=== PATIENT | male | born 1940 | race Caucasian/White ===

== ENCOUNTER 2019-03-23 11:07 | Day surgery (SDC) | payer MEDICARE, BC ==
[~2019-03-23] VITALS: Ht 180.3 cm; Wt 82.2 kg
[2019-03-23] VITALS (17 sets, daily range): BP systolic 114–157; BP diastolic 43–111
[2019-03-23] MEDS ORDERED: normal saline 1000ml 1,000 ML IV SCH (11:35)
[2019-03-23 12:13] LABS: BASOPHILS % (AUTO) 0.2 % (0-1); EOSINOPHILS # (AUTO) 0.1 X10'3 (0-0.9); HEMATOCRIT 45.2 % (42.0-52.0); HEMOGLOBIN 15.8 g/dl (14.0-17.9); LYMPHOCYTES # (AUTO) 0.8 X10'3 (1.1-4.8); LYMPHOCYTES % (AUTO) 10.9 % (21-51); MEAN CORPUSCULAR HGB CONC 34.8 g/dL (33.0-36.5); MEAN CORPUSCULAR VOLUME 94.8 FL (78-98); MEAN PLATELET VOLUME 7.4 FL (7.4-10.4); MONOCYTES # (AUTO) 0.4 X10'3 (0-0.9); MONOCYTES % (AUTO) 5.5 % (2-12); NEUTROPHILS # (AUTO) 5.9 X10'3 (1.8-7.7); NEUTROPHILS % (AUTO) 82.4 % (42-75); PLATELET COUNT 158 X10'3 (140-440); RED BLOOD COUNT 4.77 X10'6 (4.70-6.10); RED CELL DISTRIBUTION WIDTH 13.8 % (11.5-14.5); WHITE BLOOD COUNT 7.2 X10'3 (4.5-11.0)
[2019-03-23] MEDS ORDERED: LISI10TA4 (12:16)
[2019-03-23] MEDS ORDERED: CANA300T (12:16)
[2019-03-23] MEDS ORDERED: CARV40CP7 (12:16)
[2019-03-23] MEDS ORDERED: ASPI81TA52 PO (12:16)
[2019-03-23] MEDS ORDERED: FLO0.4C (12:16)
[2019-03-23] MEDS ORDERED: SAXA5TAB (12:16)
[2019-03-23] MEDS ORDERED: ROSU5TAB PO (12:16)
[2019-03-23] MEDS ORDERED: METF-438 (12:16)
[2019-03-23] MEDS ORDERED: TRAM50TA2 (12:16)
[2019-03-23 12:22] LABS: ALBUMIN 3.6 G/DL (3.4-5.0); ANION GAP 12 (8-16); BLOOD UREA NITROGEN 20 MG/DL (7-18); BUN/CREATININE RATIO 29.4 (5.4-32.0); CALCIUM 8.7 MG/DL (8.5-10.1); CHLORIDE 109 MMOL/L (99-107); CREATININE 0.68 MG/DL (0.60-1.10); GLUCOSE 99 MG/DL (70-104); POTASSIUM 4.1 MMOL/L (3.5-5.1); SODIUM 144 MMOL/L (135-145); TOTAL CARBON DIOXIDE 23.4 MMOL/L (24-32); eGFR > 90 ML/MIN
[2019-03-23] MEDS ORDERED: midazolam 2 mg/2 ml injection ONE ×2 (12:55→13:21)
[2019-03-23] MEDS ORDERED: fentaNYL/PF 50MCG/1 ML 2ML syringe ONE ×2 (12:55→13:21)
[2019-03-23] MEDS ORDERED: gelatin sponge, absorbable (Gelfoam 12-7MM) sponge TP ONE (13:43)
[2019-03-23] MEDS ORDERED: gelatin sponge, absorbable (Gelfoam 100) sponge TP ONE (15:25)
== END 2019-03-23 15:20 | disposition home or self-care (01) ==
LOC: SSTAY O 11:07
PROVIDERS: ATTEND Radiology Vascular & Interventional Radiology
DX: M89.8X8 Other specified disorders of bone, other site (principal); F41.9 Anxiety disorder, unspecified; I25.10 Atherosclerotic heart disease of native coronary artery without angina pectoris; E11.40 Type 2 diabetes mellitus with diabetic neuropathy, unspecified; E78.5 Hyperlipidemia, unspecified; M19.90 Unspecified osteoarthritis, unspecified site; Z87.442 Personal history of urinary calculi; I10 Essential (primary) hypertension; Z79.84 Long term (current) use of oral hypoglycemic drugs; Z79.899 Other long term (current) drug therapy; Z86.010 Personal history of colon polyps; Z85.46 Personal history of malignant neoplasm of prostate; Z79.01 Long term (current) use of anticoagulants; Z72.89 Other problems related to lifestyle; Z87.891 Personal history of nicotine dependence; Z82.61 Family history of arthritis; Z83.3 Family history of diabetes mellitus; Z80.9 Family history of malignant neoplasm, unspecified
CPT/HCPCS: 20225; 36415; 77012; 80048; 85025; 85610; 99152; 99153; J2250; J3010; J7030; 88305; 88311; 88342

== ENCOUNTER 2019-07-10 15:14 | Emergency (ER) | payer MEDICARE, BC ==
[~2019-07-10] VITALS: Ht 180.3 cm; Wt 82.2 kg
[~2019-07-10 15:14] MED LIST: ASPI81TA52 PO; CANA300T; CARV40CP7; FLO0.4C; LISI10TA4; METF-438; ROSU5TAB PO; SAXA5TAB; TRAM50TA2
[2019-07-10 16:12] VITALS: BP 133/87
[2019-07-10] MEDS ORDERED: BUPIVAcaine/PF 7.5 mg/ml (0.75%) 30ml vial IJ ONE (17:00)
[2019-07-10] MEDS ORDERED: BUPIVAcaine/PF 7.5mg/ml (0.75%) 10ml vial IJ ONE (17:05)
== END 2019-07-10 18:23 | disposition home or self-care (01) ==
LOC: ER 15:15
DX: M25.551 Pain in right hip (principal); G89.29 Other chronic pain; M79.18 Myalgia, other site; Z79.82 Long term (current) use of aspirin; Z79.899 Other long term (current) drug therapy
CPT/HCPCS: 20552; 72170; 99285; J3490

== ENCOUNTER 2019-08-01 13:26 | Emergency (ER) | payer MEDICARE, BC ==
[~2019-08-01] VITALS: Ht 180.3 cm; Wt 81.8 kg
[2019-08-01] MEDS ORDERED: BUPIVAcaine/PF 7.5 mg/ml (0.75%) 30ml vial IJ ONE (14:00)
[2019-08-01] MEDS ORDERED: BUPIVAcaine/PF 7.5mg/ml (0.75%) 10ml vial IJ ONE (14:15)
[2019-08-01] MEDS ORDERED: OXYC-145 PO (14:50)
[2019-08-01 15:40] VITALS: BP 154/88
== END 2019-08-01 15:43 | disposition home or self-care (01) ==
LOC: ER 13:27
DX: M25.551 Pain in right hip (principal); M79.18 Myalgia, other site; M54.17 Radiculopathy, lumbosacral region; I10 Essential (primary) hypertension; I25.2 Old myocardial infarction; E11.9 Type 2 diabetes mellitus without complications; Z96.641 Presence of right artificial hip joint; Z98.890 Other specified postprocedural states; Z79.82 Long term (current) use of aspirin; Z79.899 Other long term (current) drug therapy
CPT/HCPCS: 20552; 99284; J3490